=== PATIENT | female | born 1985 ===

== ENCOUNTER 2022-06-04 10:57 | Emergency (ER) | payer OTHER, BC ==
[2022-06-04] MEDS ORDERED: Sodium Chloride 0.9% 1,000 ML IV ONE (11:21)
[2022-06-04] MEDS ORDERED: Ketorolac 30 MG/ML SDV IVPUSH ONE (11:21)
[2022-06-04 12:08] LABS: CORONAVIRUS COVID-19 NAA NEGATIVE (NEGATIVE); INFLUENZA A NAA NEGATIVE (NEGATIVE); INFLUENZA B NAA NEGATIVE (NEGATIVE); RESPIRATORY SYNCYTIAL VIR NAA NEGATIVE (NEGATIVE)
== END 2022-06-04 12:53 | disposition home or self-care (01) ==
LOC: MW.ED 10:57
DX: J02.0 Streptococcal pharyngitis (principal); Z20.822 Contact with and (suspected) exposure to COVID-19
CPT/HCPCS: 0241U; 87651; 96361; 96374; 99283; J1885; J7030; 99284